=== PATIENT | female | born 1960 | race Caucasian/White ===

== ENCOUNTER → 2023-02-21 | Outpatient (CLI) | payer OTHER ==
[~2023-02-21] MED LIST: NOCURR
== END | disposition home or self-care (01) ==
LOC: RADMN 13:45
PROVIDERS: ATTEND Legal Medicine
DX: M19.072 Primary osteoarthritis, left ankle and foot (principal); M19.071 Primary osteoarthritis, right ankle and foot; M77.32 Calcaneal spur, left foot; M77.31 Calcaneal spur, right foot; M17.0 Bilateral primary osteoarthritis of knee; M79.89 Other specified soft tissue disorders; N88.8 Other specified noninflammatory disorders of cervix uteri

== ENCOUNTER → 2023-03-21 | Outpatient (CLI) | payer OTHER | END | disposition home or self-care (01) | LOC: RADMN 10:48 | PROVIDERS: ATTEND Legal Medicine | DX: S93.411A Sprain of calcaneofibular ligament of right ankle, initial encounter (principal); M25.571 Pain in right ankle and joints of right foot; M21.6X1 Other acquired deformities of right foot; M19.071 Primary osteoarthritis, right ankle and foot; X58.XXXA Exposure to other specified factors, initial encounter; Y93.89 Activity, other specified; Y92.89 Other specified places as the place of occurrence of the external cause; Y99.8 Other external cause status | CPT/HCPCS: 73721 ==